=== PATIENT | female | born 1980 | race Caucasian/White ===

== ENCOUNTER 2017-08-06 11:59 | Emergency (ER) | payer MEDICAID ==
[2017-08-06 13:19] LABS: BASOPHILS 0.1 % (0-2); EOSINOPHILS 3.4 % (0-7); HEMATOCRIT 39.9 % (36.0-48.0); HEMOGLOBIN 13.4 g/dL (12-16); IMMATURE GRANULOCYTES 0.1 % (0-5); MCH 31.1 pg (26.0-34.0); MCHC 33.6 g/dL (31.0-37.0); MCV 92.6 fL (80.0-100.0); MEAN PLATELET VOLUME 9.5 fL (7.4-10.4); MONOCYTES 6.5 % (2-11); NEUTROPHILS 63.9 % (40-80); PLATELET COUNT 211 10x3/uL (130-400); RBC 4.31 10x6/uL (4.00-5.40); RDW 12.4 % (11.5-14.5); WBC 6.8 10x3/uL (4.8-10.8)
[2017-08-06 13:46] LABS: ALBUMIN 3.6 g/dL (3.4-5.0); ALKALINE PHOSPHATASE 84 U/L (46-116); ALT (SGPT) 84 U/L (10-68); BILIRUBIN - TOTAL 0.19 mg/dL (0.2-1.3); CALC OSMOLALITY 279 mosm/kg (275-300); CALCIUM 8.6 mg/dL (8.5-10.1); CARBON DIOXIDE 28.4 mmol/L (21.0-32.0); CHLORIDE - SERUM 104 mmol/L (98-107); GLUCOSE 91 mg/dL (74-106); POTASSIUM - SERUM 4.8 mmol/L (3.5-5.1); PROTEIN - SERUM 7.2 g/dL (6.4-8.2); SODIUM 141 mmol/L (136-145); UREA NITROGEN 11 mg/dL (7-18); eGFR NON AFRICAN AMERICAN 66 mL/min (90-120)
[2017-08-06 13:57] LABS: CKMB 0.9 U/L (0.0-3.6); CREATINE KINASE 253 UL (21-215); TROPONIN-I < 0.017 ng/mL (0.000-0.060)
== END 2017-08-06 15:40 | disposition home or self-care (01) ==
LOC: D.ER 11:59
PROVIDERS: Family Medicine
DX: R55 Syncope and collapse (principal); F17.200 Nicotine dependence, unspecified, uncomplicated

== ENCOUNTER 2017-12-09 14:42 | Emergency (ER) | payer MEDICAID ==
[2017-12-09 15:25] LABS: BASOPHILS 0.5 % (0-2); EOSINOPHILS 3.8 % (0-7); HEMATOCRIT 39.7 % (36.0-48.0); HEMOGLOBIN 13.4 g/dL (12-16); IMMATURE GRANULOCYTES 0.3 % (0-5); LYMPHOCYTES 33.2 % (15-50); MCH 31.4 pg (26.0-34.0); MCHC 33.8 g/dL (31.0-37.0); MEAN PLATELET VOLUME 9.9 fL (7.4-10.4); MONOCYTES 7.6 % (2-11); NEUTROPHILS 54.6 % (40-80); PLATELET COUNT 243 10x3/uL (130-400); RBC 4.27 10x6/uL (4.00-5.40); RDW 12.7 % (11.5-14.5); WBC 6.6 10x3/uL (4.8-10.8)
[2017-12-09 15:40] LABS: ALBUMIN 3.9 g/dL (3.4-5.0); ANION GAP 9.7 mmol/L (8-16); BILIRUBIN - TOTAL 0.34 mg/dL (0.2-1.3); CALCIUM 8.8 mg/dL (8.5-10.1); POTASSIUM - SERUM 4.7 mmol/L (3.5-5.1); PROTEIN - SERUM 7.3 g/dL (6.4-8.2)
[2017-12-09 15:53] LABS: APPEARANCE HAZY (CLEAR); BILIRUBIN NEGATIVE (NEGATIVE); COLOR YELLOW (YELLOW); GLUCOSE NEGATIVE (NEGATIVE); KETONE NEGATIVE (NEGATIVE); NITRITE NEGATIVE (NEGATIVE); PROTEIN NEGATIVE (NEGATIVE); UROBILINOGEN NORMAL (NORMAL)
[2017-12-09 15:56] LABS: THYROID STIMULATING HORMONE 1.47 uIU/mL (0.36-3.74)
[2017-12-09 15:57] LABS: WHITE CELLS - URINE OCC /hpf (0-5)
[2017-12-09 15:58] LABS: BACTERIA MODERATE /hpf (NONE SEEN); EPITHELIAL CELLS 0-5 /hpf (0-5); RED CELLS - URINE 0-5 /hpf (0-5)
[2017-12-09 16:04] LABS: HCG SERUM NEGATIVE (NEGATIVE)
[2017-12-09 16:35] LABS: UDS - AMPHET POSITIVE QUAL (NEGATIVE); UDS - BARB NEGATIVE QUAL (NEGATIVE); UDS - BENZO NEGATIVE QUAL (NEGATIVE); UDS - COCAINE NEGATIVE QUAL (NEGATIVE); UDS - OPIATE NEGATIVE QUAL (NEGATIVE); UDS - PCP NEGATIVE QUAL (NEGATIVE); UDS - THC POSITIVE QUAL (NEGATIVE)
== END 2017-12-09 17:09 | disposition home or self-care (01) ==
LOC: D.ER 14:42
PROVIDERS: Emergency Medicine; Physician Assistant
DX: R53.83 Other fatigue (principal); R10.31 Right lower quadrant pain; R10.32 Left lower quadrant pain; R63.5 Abnormal weight gain; Z86.59 Personal history of other mental and behavioral disorders; F15.10 Other stimulant abuse, uncomplicated; F12.10 Cannabis abuse, uncomplicated; F17.200 Nicotine dependence, unspecified, uncomplicated

== ENCOUNTER 2018-02-19 22:25 | Emergency (ER) | payer MEDICAID ==
[~2018-02-19] VITALS: Ht 160 cm; Wt 84.1 kg
[2018-02-19 22:38] VITALS: Ht 160 cm; Wt 84.1 kg
[2018-02-19] MEDS ORDERED: FLAGYL500 MG PO (22:39)
[2018-02-19] MEDS ORDERED: REXULTI1 MG PO (22:39)
[2018-02-19] MEDS ORDERED: BUPROPION HCL100 MG PO (22:40)
[2018-02-19] MEDS ORDERED: KLONOPIN1 MG PO (22:40)
[2018-02-19 23:40] VITALS: BP 122/78
== END 2018-02-19 23:42 | disposition left against medical advice (07) ==
LOC: D.ER 22:25
DX: R41.82 Altered mental status, unspecified (principal)

== ENCOUNTER 2018-06-16 10:24 | Emergency (ER) | payer MEDICAID ==
[~2018-06-16] VITALS: Ht 160 cm; Wt 90.9 kg
[~2018-06-16 10:24] MED LIST: BUPROPION HCL100 MG PO; FLAGYL500 MG PO; KLONOPIN1 MG PO; REXULTI1 MG PO
[2018-06-16 10:34] VITALS: Ht 160 cm; Wt 90.9 kg
[2018-06-16] MEDS ORDERED: LITHIUM CARBON150 MG (10:35)
[2018-06-16] MEDS ORDERED: VIBRAMYCIN 100100 MG PO (11:30)
[2018-06-16] MEDS ORDERED: PHENERGAN DM SYR5 ML PO (11:30)
[2018-06-16] MEDS ORDERED: VENTOLIN HFA18 GM INH (11:30)
[2018-06-16 11:33] VITALS: BP 114/67
== END 2018-06-16 11:34 | disposition home or self-care (01) ==
LOC: D.ER 10:24
DX: J20.9 Acute bronchitis, unspecified (principal); J01.90 Acute sinusitis, unspecified; M79.18 Myalgia, other site; R53.1 Weakness; R19.7 Diarrhea, unspecified; R09.89 Other specified symptoms and signs involving the circulatory and respiratory systems; F17.200 Nicotine dependence, unspecified, uncomplicated

== ENCOUNTER 2019-04-09 21:11 | Emergency (ER) | payer MEDICAID ==
[~2019-04-09] VITALS: Ht 160 cm; Wt 90.9 kg
[~2019-04-09 21:11] MED LIST changes: +LITHIUM CARBON150 MG; +PHENERGAN DM SYR5 ML PO; +VENTOLIN HFA18 GM INH; +VIBRAMYCIN 100100 MG PO
[2019-04-09 21:14] VITALS: Ht 160 cm; Wt 90.9 kg
[2019-04-09] MEDS ORDERED: PROZAC40 MG PO (21:17)
[2019-04-09] MEDS ORDERED: HYDROCODON-ACE1 EAC7 PO (21:35)
[2019-04-09] MEDS ORDERED: CORTISPORIN OTI10 M1 EACH EAR (21:35)
[2019-04-09 21:53] VITALS: BP 128/78
== END 2019-04-09 21:54 | disposition home or self-care (01) ==
LOC: D.ER 21:11
DX: H60.92 Unspecified otitis externa, left ear (principal)

== ENCOUNTER 2019-06-28 11:52 | Emergency (ER) | payer MEDICAID ==
[~2019-06-28] VITALS: Ht 160 cm; Wt 90.9 kg
[~2019-06-28 11:52] MED LIST changes: +CORTISPORIN OTI10 M1 EACH EAR; +HYDROCODON-ACE1 EAC7 PO; +PROZAC40 MG PO
[2019-06-28 11:56] VITALS: Ht 160 cm; Wt 90.9 kg
[2019-06-28 12:59] LABS: BASOPHILS 0.2 % (0-2); EOSINOPHILS 2.4 % (0-7); HEMOGLOBIN 13.1 g/dL (12-16); IMMATURE GRANULOCYTES 0.1 % (0-5); LYMPHOCYTES 27.5 % (15-50); MCH 30.8 pg (26.0-34.0); MCHC 32.8 g/dL (31.0-37.0); MCV 94.1 fL (80.0-100.0); MEAN PLATELET VOLUME 9.4 fL (7.4-10.4); NEUTROPHILS 64.8 % (40-80); PLATELET COUNT 223 10x3/uL (130-400); RBC 4.25 10x6/uL (4.00-5.40); RDW 12.7 % (11.5-14.5)
[2019-06-28 13:02] LABS: ANION GAP 10.6 mmol/L (8-16); CALCIUM 8.8 mg/dL (8.5-10.1); CREATININE - SERUM 1.1 mg/dL (0.6-1.3); POTASSIUM - SERUM 3.6 mmol/L (3.5-5.1)
[2019-06-28 13:08] LABS: ALBUMIN 3.8 g/dL (3.4-5.0); BILIRUBIN - TOTAL 0.49 mg/dL (0.2-1.3); PROTEIN - SERUM 7.3 g/dL (6.4-8.2)
[2019-06-28] MEDS ORDERED: CLEOCIN HCL300 MG PO (13:56)
[2019-06-28 14:39] VITALS: BP 127/79
== END 2019-06-28 14:39 | disposition home or self-care (01) ==
LOC: D.ER 11:52
PROVIDERS: Family Medicine
DX: L03.114 Cellulitis of left upper limb (principal); F17.210 Nicotine dependence, cigarettes, uncomplicated

== ENCOUNTER 2020-03-28 19:27 | Emergency (ER) | payer MEDICAID ==
[~2020-03-28] VITALS: Ht 160 cm; Wt 90.9 kg
[~2020-03-28 19:27] MED LIST changes: +CLEOCIN HCL300 MG PO
[2020-03-28 19:36] VITALS: BP 128/85; Ht 160 cm; Wt 90.9 kg
== END 2020-03-28 22:35 | disposition left against medical advice (07) ==
LOC: D.ER 19:27
DX: S19.9XXA Unspecified injury of neck, initial encounter (principal)

== ENCOUNTER 2020-04-21 16:48 | Emergency (ER) | payer MEDICAID ==
[2020-03-28 19:36] VITALS: Ht 160 cm
[2020-04-21] MEDS ORDERED: CYCLOBENZAPRINE10 MG PO (18:16)
[2020-04-21 18:48] VITALS: BP 120/85
== END 2020-04-21 18:48 | disposition home or self-care (01) ==
LOC: D.ER 16:48
DX: M54.2 Cervicalgia (principal); G89.29 Other chronic pain

== ENCOUNTER 2021-02-06 11:07 | Emergency (ER) | payer MEDICAID ==
[~2021-02-06] VITALS: Ht 160 cm; Wt 81.8 kg
[~2021-02-06 11:07] MED LIST changes: +ACETAMINOPHEN500 M1 PO; +BACTRIM DS TAB1 EAC1 PO; +CIPRO500 MG PO; +CYCLOBENZAPRINE10 MG PO; +IBUPROFEN800 MG PO; +PREDNISONE20 MG PO
[2021-02-06 11:11] VITALS: BP 143/92; Ht 160 cm; Wt 81.8 kg
[2021-02-06 12:23] LABS: CALC OSMOLALITY 271 mosm/kg (275-300); CALCIUM 8.5 mg/dL (8.5-10.1); CARBON DIOXIDE 24.9 mmol/L (21.0-32.0); CHLORIDE - SERUM 103 mmol/L (98-107); GLUCOSE 80 mg/dL (74-106); POTASSIUM - SERUM 4.1 mmol/L (3.5-5.1); SODIUM 137 mmol/L (136-145); UREA NITROGEN 9 mg/dL (7-18); eGFR NON AFRICAN AMERICAN 65 mL/min (90-120)
[2021-02-06 12:35] LABS: ALBUMIN 3.9 g/dL (3.4-5.0); ALKALINE PHOSPHATASE 96 U/L (30-120); ALT (SGPT) 68 U/L (10-68); BILIRUBIN - TOTAL 0.28 mg/dL (0.2-1.3); CKMB 1.9 U/L (0.0-3.6); CREATINE KINASE 437 UL (21-215); MAGNESIUM - SERUM 2.2 mg/dL (1.8-2.4); PROTEIN - SERUM 7.5 g/dL (6.4-8.2); TROPONIN-I < 0.017 ng/mL (0.000-0.060)
[2021-02-06 13:00] LABS: BASOPHILS 0.9 % (0-2); EOSINOPHILS 3.6 % (0-7); HEMATOCRIT 41.9 % (36.0-48.0); HEMOGLOBIN 13.6 g/dL (12-16); LYMPHOCYTES 34.3 % (15-50); MCHC 32.5 g/dL (31.0-37.0); MCV 95.4 fL (80.0-100.0); MEAN PLATELET VOLUME 7.8 fL (7.4-10.4); MONOCYTES 6.8 % (2-11); NEUTROPHILS 54.4 % (40-80); PLATELET COUNT 265 10x3/uL (130-400); RBC 4.39 10x6/uL (4.00-5.40); RDW 13.4 % (11.5-14.5); WBC 9.4 10x3/uL (4.8-10.8)
[2021-02-06 13:08] LABS: PROTIME > 120.0 SECONDS (11.6-15.0)
[2021-02-06 13:09] LABS: APTT > 200.0 SECONDS (22.8-39.4)
[2021-02-06 13:43] LABS: INR 1.09 (0.85-1.17)
[2021-02-06 16:30] LABS: INR 0.99 (0.85-1.17)
[2021-02-06 16:31] LABS: APTT 27.9 SECONDS (22.8-39.4); PROTIME 12.1 SECONDS (11.6-15.0)
== END 2021-02-06 17:19 | disposition home or self-care (01) ==
LOC: D.ER 11:07
PROVIDERS: Family Medicine
DX: R55 Syncope and collapse (principal); R07.9 Chest pain, unspecified; J45.909 Unspecified asthma, uncomplicated; Z72.0 Tobacco use